=== PATIENT | female | born 1940 | race Caucasian/White ===

== ENCOUNTER → 2023-08-23 15:45 | Outpatient (REF) | payer OTHER, SELFPAY | LOC: RAD 15:45 | PROVIDERS: ATTENDING PHYSICIAN Student in an Organized Health Care Education/Training Program | DX: M54.50 Low back pain, unspecified (principal); R26.81 Unsteadiness on feet | CPT/HCPCS: 72110; 73523 ==

== ENCOUNTER → 2024-05-17 08:08 | Outpatient (REF) | payer OTHER, SELFPAY | LOC: RCS 08:08 | PROVIDERS: ATTENDING PHYSICIAN Internal Medicine; FAMILY PHYSICIAN Student in an Organized Health Care Education/Training Program | DX: Z98.890 Other specified postprocedural states (principal); I42.8 Other cardiomyopathies | CPT/HCPCS: 93306 ==